=== PATIENT | male | born 1990 | race Caucasian/White ===

== ENCOUNTER 2017-03-08 20:15 | Emergency (ER) | payer BC ==
[~2017-03-08] VITALS: Ht 195.5 cm; Wt 115.7 kg
[2017-03-08] MEDS ORDERED: HYDROCODONE BIT1 T11 PO (20:42)
[2017-03-08] MEDS ORDERED: CEPHALEXIN500 M1 PO (20:42)
== END 2017-03-08 20:51 | disposition home or self-care (01) ==
LOC: ED 20:15
DX: T21.21XA Burn of second degree of chest wall, initial encounter (principal); X17.XXXA Contact with hot engines, machinery and tools, initial encounter; Y93.89 Activity, other specified; Y92.219 Unspecified school as the place of occurrence of the external cause; Y99.9 Unspecified external cause status